=== PATIENT | female | born 1945 | race Caucasian/White ===

== ENCOUNTER → 2019-05-04 | Outpatient (CLI) | payer OTHER ==
--- NOTE | 2019-05-06 19:35 | RAD ---
EXAM DESCRIPTION: Barium Swallow: Rad-Fluoroscopy. CLINICAL HISTORY: DYSPHAGIA. 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 COMPARISON: None TECHNIQUE: The patient swallowed gas-producing granules, water, and medium density barium under fluoroscopic visualization. The images were obtained with the patient supine and horizontal. Patient drank medium density barium through a straw in the semi-prone position. 139 fluoroscopic cine loop images. 5 static fluoroscopic images. Total fluoroscopy time was 3.4 minutes. DAP: 26.5 Gy-cm2.. FINDINGS: In the upright position, there is minimal delay in swallowing with at least 2 swallows needed per bolus to clear the oral cavity. Symmetric filling of the bilateral vallecula and the bilateral piriform sinuses. No laryngeal penetration or aspiration. Primary peristaltic wave is normal to approximately the middle of the esophagus. Secondary and tertiary contractions are noted in the distal half of the esophagus. Incomplete clearing of the esophagus was most noted with patient swallowing in semiprone position, and there was reflux from the distal esophagus into the proximal esophagus near the level of the thoracic inlet. Patient has a small sliding hiatal hernia. Minimal gastroesophageal reflux, mostly gas, into the distal esophagus. No mass effect on the esophagus. No gastroduodenal obstruction. No mass effect on the stomach or duodenum.. IMPRESSION: 1. Slight delay in emptying of the oral cavity with multiple swallows needed. Symmetric contrast movement through the oropharynx and larynx. No laryngeal penetration or aspiration. 2. Normal contractions proximal half of the esophagus with secondary and tertiary contractions distal half. Small sliding hiatal hernia. No gastroesophageal reflux. Electronically signed by: Elijah Castro MD 05/06/2019 7:[address] [facility]
== END ==
LOC: RAD 09:19
PROVIDERS: ATTEND Emergency Medicine
DX: R13.10 Dysphagia, unspecified (principal); K44.9 Diaphragmatic hernia without obstruction or gangrene